=== PATIENT | female | born 2000 | race Hispanic/Latino ===

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

== ENCOUNTER 2022-06-23 13:22 | Emergency (ER) | payer OTHER ==
[2022-06-23] MEDS ORDERED: Ketorolac Tromethamine 30 MG/ML VIAL ONE (13:43)
[2022-06-23] MEDS ORDERED: HYDROcodone/Acetaminophen 10/325 mg Tablet ONE (13:43)
== END 2022-06-23 14:42 | disposition home or self-care (01) ==
LOC: CSHERS 13:22
DX: M25.572 Pain in left ankle and joints of left foot (principal)
CPT/HCPCS: 29515; 96372; J1885